=== PATIENT | male | born 1985 | race Caucasian/White ===

== ENCOUNTER 2016-09-02 20:47 | Emergency (ER) | payer MEDICAID ==
[~2016-09-02] VITALS: Ht 188 cm; Wt 101.0 kg
[2016-09-02 20:49] VITALS: BP 144/88; PULSE 84; RESP 16; O2SAT 100
--- NOTE | 2016-09-02 21:00 | ED.REPORT ---
HPI-Psychiatric Illness Date of Service Sep 02, 2016 ED Provider: The patient is a 31 year old male who presents to the emergency department complaining of a panic attack. He suddenly got this feeling of anxiety after he got home and was sitting on the couch watching the TV. He went to his girlfriends work to talk to her about this. On his way there he started to feel forgetful and states he felt like if he didn't get to her on time he was going to forget where he was going. He has only slept about 5 hours per night over the last 2 weeks due to his work. He has had similar symptoms a few times in the last year but has never been evaluated. He has also experienced fatigue, increased need for sleep, and difficulty concentrating. He reports history of heavy alcohol use in the past. He was not drinking alcohol to help with his anxiety. His mother has history of paranoid schizophrenia. He does not have a primary care provider. Nursing Notes Stated Complaint: ANXIETY ATTACK Chief Complaint: Psychiatric Complaint Nursing Notes Reviewed: Yes Allergies: Coded Allergies: caffeine (Verified Adverse Reaction, Severe, anxiety, shortness of breath , 09/02/16) Scheduled Fluoxetine (Fluoxetine) 20 Mg Capsule 20 MG PO DAILY Scheduled PRN Lorazepam (Ativan) 0.5 Mg Tablet 0.5 MG PO DAILY PRN PRN For Anxiety General Time Seen by MD: 20:59 Chief Complaint Anxious Hx Obtained From: Patient Arrived By: Walk-in Onset Occurred: 1 - 4 hours ago Symptom Duration: Since onset Progression Since Onset: Constant, Gradually improving Severity: Current: No pain currently Severity: Maximum: No pain Recent Healthcare: No recent doctor visit, No recent hospitalization Similar Sx Previous: Yes Risk-Psychiatric Illness Suicide Risk Stratification RF Statements: Risk factors reviewed Past Medical History Past Medical History Pt reports history of ADHD, not on prescribed medication Past Surgical History None Family History His mother has history of paranoid schizophrenia Social History History of heavy drinking from age of [age], there were periods of time when he was drinking every day. He lives in [place]. Other Social History: Good social support, Local resident Occupation Works at a [employer] Ambulatory Status Independent Review of Systems Review of Systems Note: +increased need for sleep, poor concentration Constitutional: Reports: Fatigue Psychiatric: Reports: Anxiety, Stress Complete sys rev & neg: except as marked. Physical Exam Initial Vital Signs Initial VS: Reviewed Head / Eyes: Atraumatic, Normocephalic, PERRL ENT: Mucous membranes moist, Conjunctiva normal, No scleral icterus Neck: Supple, Non-tender, Full range of motion Respiratory: Breath sounds normal, Clear to auscultation, No respiratory distress Cardiovascular: Regular rate & rhythm, Heart sounds normal, Intact distal pulses Abdomen / GI: Soft, Non-tender, No guarding, No rebound, No distention Lymphatic: No lymphadenopathy Extremities: Vascular intact, Neuro intact, No swelling, No tenderness Skin: Warm, Dry, No cyanosis General/Constitutional: Awake, Alert, Cooperative Behavior: Positive: Anxious Neurologic: Oriented X3, Speech NL, No motor deficits, No sensory deficits, Cerebellar NL, Memory NL Psychiatric: Not suicidal, Not homicidal, No hallucinations, Cognitive function NL, Judgment/insight NL, Thought content NL Abnormal Mood/Affect: Positive: Anxious Interpretation & Diagnostics Lab Results Interpretation Test 09/02/16 21:17 Hold Urine Received (Received) Re-Eval/Medical Decision Source of Hx: Old records, Friend Re-Evaluation/Progress #1: Time of Eval: 21:45 Re-Evaluation/Progress Note: Discussed findings, diagnosis, and plan for medication. Re-Evaluation/Progress #2: Time of Eval: 22:41 Re-Evaluation/Progress Note: Rechecked the patient. He is feeling much better. Discussed plan for discharge. All questions were addressed. Counseled Regarding: Diagnosis, Need for follow-up, When/why to return to ED Discharge & Departure Impression: Primary Impression: Anxiety )( Condition at Discharge: No danger to self, No danger to others, No suicidal ideation, No homicidal ideation Disposition: Home Discharge Condition All VS Reviewed: Yes Condition: Stable Patient Instructions: Generalized Anxiety Disorder (ED) Additional Instructions: Thank you for entrusting us with your care today. I am sorry you are going through this. I have written you a prescription for fluoxetine. This should help with your anxiety and concentration. Over the first day or so you may feel a little nauseated. This medication takes about 3-4 weeks to start working. I have given you a few doses of Ativan that you an use if you feel like you are having another panic attack. I have given you my office's phone number. Call on Monday to schedule a followup appointment in about 4 weeks. Tell them that I saw you in the ER and I wanted to see you in 4 weeks. Please return to the emergency department if you develop any new or concerning symptoms. Referrals: Kb Louis Attestation Portions of this note were transcribed by Heidi Green. I, Dr. Louis personally performed the history, physical exam and medical decision-making; I reviewed and confirmed the accuracy of the information in the transcribed note. Signed by: Marlyn Christy, 09/02/2016 at 2300. copies to: Kb Louis Gary R DO Sep 02, 2016 21:00 Heidi Green Sep 02, 2016 21:23 Kb Louis DO Sep 02, 2016 21:00 Heidi Green Sep 02, 2016 21:23
[2016-09-02] MEDS ORDERED: LORazepam 0.5 mg Tablet PO ONE (21:40)
[2016-09-02] MEDS ORDERED: FLUO20CA25 PO (22:54)
[2016-09-02] MEDS ORDERED: LORA-302 PO (22:54)
[2016-09-02 23:11] VITALS: BP 144/88; PULSE 84; RESP 16; O2SAT 100
== END 2016-09-02 23:12 | disposition home or self-care (01) ==
LOC: SED 20:47
DX: F41.9 Anxiety disorder, unspecified (principal)